=== PATIENT | female | born 2000 | race Hispanic/Latino ===

== ENCOUNTER 2019-02-03 21:22 | Emergency (ER) | payer BC ==
[~2019-02-03] VITALS: Ht 158 cm; Wt 64.0 kg
[~2019-02-03 21:22] MED LIST: ORTHO TRI-CY PO; ZOFRAN ODT4 MG PO
[2019-02-03 22:14] LABS: URINE BILIRUBIN - DIPSTICK NEGATIVE (NEGATIVE); URINE BLOOD DIPSTICK LARGE (NEGATIVE); URINE CLARITY SL CLOUDY; URINE COLOR YELLOW; URINE GLUCOSE - DIPSTICK NEGATIVE (NEGATIVE); URINE KETONE NEGATIVE (NEGATIVE); URINE LEUK ESTERASE TRACE (Negative); URINE NITRITE - DIPSTICK NEGATIVE (Negative); URINE PROTEIN - DIPSTICK 100 mg/dL (NEG-TRACE); URINE SPECIFIC GRAVITY >=1.030; URINE UROBILINOGEN - DIPSTICK 0.2 E.U./dL (0.2)
[2019-02-03 22:15] LABS: URINE EPITHELIAL CELLS FEW EPI/hpf (0-FEW); URINE RBC 50-100 RBC/hpf (0-5); URINE WBC 0-2 WBC/hpf (0-5)
[2019-02-03 23:31] LABS: ACT PARTIAL THROMBO TIME 26.5 SECONDS (20.0-32.5); PROTHROMBIN TIME 10.4 SECONDS (9.0-12.5)
[2019-02-04 00:24] VITALS: BP 120/78
== END 2019-02-04 00:24 | disposition home or self-care (01) | DRG 696 ==
LOC: ED 21:22
PROVIDERS: Emergency Medicine
DX: R31.9 Hematuria, unspecified (principal)

== ENCOUNTER 2021-10-14 23:59 | Emergency (ER) | payer MEDICAID ==
[~2021-10-14] VITALS: Ht 157.5 cm; Wt 89.0 kg
[2021-10-15 00:10] VITALS: BP 122/88
[2021-10-15 00:15] VITALS: BP 128/86
[2021-10-15 00:31] VITALS: BP 124/77
[2021-10-15 00:38] LABS: HEMATOCRIT 39.7 % (37.0-47.0); HEMOGLOBIN 12.9 g/dl (12.0-16.0); IMMATURE GRANULOCYTES 0.1 % (0.0-5.0); MEAN CORPUSCULAR HGB 30.2 pG CALC (26.0-32.0); MEAN CORPUSCULAR HGB CONC 32.5 g/dL CAL (32.0-36.0); NEUT# 3.88 thou/uL (2.00-7.15); RED BLOOD COUNT 4.27 mill/uL (4.20-5.60); RED CELL DISTRI WIDTH 11.6 % (11.5-15.5)
[2021-10-15 00:50] LABS: ALBUMIN 4.2 g/dL (3.2-5.0); ALKALINE PHOSPHATASE 73 u/l (38-126); ANION GAP 11 (6-22 (CALC)); BILIRUBIN, TOTAL 0.3 mg/dL (0.0-1.4); BUN 13 mg/dL (7-17); BUN/CREATININE RATIO 22 (12-20 (CALC)); CARBON DIOXIDE 27 mmol/l (22-30); CHLORIDE 105 mmol/l (95-108); CREATININE 0.6 mg/dL (0.5-1.0); GFR > 60 ML/MIN (>=60 (CALC)); GFR FOR AFR.AMER. > 60 ML/MIN (>=60 (CALC)); POTASSIUM 4.6 mmol/l (3.5-5.1); SODIUM 138 mmol/l (137-146); TOTAL PROTEIN 7.8 g/dL (6.3-8.2)
[2021-10-15 00:53] LABS: SGOT/AST 129 u/l (14-36)
[2021-10-15 00:55] LABS: ACT PARTIAL THROMBO TIME 24.9 SECONDS (20.0-32.5); PROTHROMBIN TIME 10.2 SECONDS (9.0-12.5)
[2021-10-15 00:59] LABS: D-DIMER 0.46 mg/L (0.19-0.60)
[2021-10-15 01:00] VITALS: BP 105/70
[2021-10-15] MEDS ORDERED: DULERA1 AE1 IN (01:12)
[2021-10-15] MEDS ORDERED: VENTOLIN HFA IN (01:12)
[2021-10-15 01:14] VITALS: BP 105/70
== END 2021-10-15 01:21 | disposition home or self-care (01) ==
LOC: ED 23:59
PROVIDERS: Family Medicine
DX: R04.2 Hemoptysis (principal); J45.909 Unspecified asthma, uncomplicated

== ENCOUNTER 2022-09-21 07:56 | Emergency (ER) | payer MEDICAID ==
[2022-09-21] VITALS (10 sets, daily range): BP systolic 92–135; BP diastolic 50–91
[~2022-09-21] VITALS: Ht 157.5 cm; Wt 63.5 kg
[~2022-09-21 07:56] MED LIST changes: +DULERA1 AE1 IN; +VENTOLIN HFA IN
[2022-09-21 08:58] LABS: BASO% 0.5 % (0-3); EOS% 1.9 % (0-8); HEMATOCRIT 40.7 % (37.0-47.0); IMMATURE GRANULOCYTES 0.2 % (0.0-5.0); LYMPH% 49.6 % (15-41); MEAN CORPUSCULAR HGB CONC 31.9 g/dL CAL (32.0-36.0); MONO% 7.7 % (2-13); NEUT# 4.98 thou/uL (2.00-7.15); NEUT% 40.1 % (42-76); RED BLOOD COUNT 4.33 mill/uL (4.20-5.60); RED CELL DISTRI WIDTH 11.9 % (11.5-15.5)
[2022-09-21 09:05] LABS: ALBUMIN 4.5 g/dL (3.2-5.0); ALKALINE PHOSPHATASE 99 u/l (38-126); ANION GAP 14 (6-22 (CALC)); BILIRUBIN, TOTAL 0.5 mg/dL (0.02-1.3); BUN 12 mg/dL (7-17); BUN/CREATININE RATIO 23 (12-20 (CALC)); CARBON DIOXIDE 23 mmol/l (22-30); CHLORIDE 106 mmol/l (95-108); CREATININE 0.5 mg/dL (0.5-1.0); GFR FOR AFR.AMER. > 60 ML/MIN (>=60 (CALC)); GFR OTHER RACES > 60 ML/MIN (>=60 (CALC)); POTASSIUM 4.8 mmol/l (3.5-5.1); SGOT/AST 122 u/l (14-36); SODIUM 138 mmol/l (137-146); TOTAL PROTEIN 8.2 g/dL (6.3-8.2)
[2022-09-21] MEDS ORDERED: AMOXICILLIN500 M2 PO (11:20)
[2022-09-21] MEDS ORDERED: EPIPEN 2-P0.3 MG/0.3 IM (11:20)
[2022-09-21] MEDS ORDERED: PREDNISONE50 MG PO (11:20)
== END 2022-09-21 11:42 | disposition home or self-care (01) ==
LOC: ED 07:56
PROVIDERS: Family Medicine
DX: T78.3XXA Angioneurotic edema, initial encounter (principal); J45.909 Unspecified asthma, uncomplicated; E06.3 Autoimmune thyroiditis; Z20.822 Contact with and (suspected) exposure to COVID-19

== ENCOUNTER 2023-08-11 23:03 | Emergency (ER) | payer MEDICAID ==
[~2023-08-11] VITALS: Ht 157.5 cm; Wt 80.0 kg
[~2023-08-11 23:03] MED LIST changes: +AMOXICILLIN500 M2 PO; +EPIPEN 2-P0.3 MG/0.3 IM; +PREDNISONE50 MG PO
[2023-08-12] MEDS ORDERED: VENTOLIN HFA108 MCG (00:07)
[2023-08-12] MEDS ORDERED: PRENATA3 PO (00:07)
[2023-08-12] MEDS ORDERED: IRON325 M1 (00:07)
[2023-08-12] MEDS ORDERED: [UNRECOGNIZED DRUG - REMARK] (00:08)
[2023-08-12] MEDS ORDERED: SODIUM CHLORIDE 0.9% 1,000 ML IV ONE (00:35)
[2023-08-12] MEDS ORDERED: DEXAMETHASONE SODIUM PHOSPHATE PF 10 MG/ML SDV IV ONE (00:35)
[2023-08-12] MEDS ORDERED: IPRATROPIUM-Albuterol 0.5MG-2.5MG/3 ML NEB ONE (00:40)
[2023-08-12 00:48] LABS: BASO% 0.4 % (0-3); IMMATURE GRANULOCYTES 0.1 % (0.0-5.0); LYMPH% 32.5 % (15-41); MEAN CELL VOLUME 90.6 fL CALC (80.0-100.0); MEAN CORPUSCULAR HGB 28.8 pG CALC (26.0-32.0); MEAN CORPUSCULAR HGB CONC 31.8 g/dL CAL (32.0-36.0); NEUT# 4.44 thou/uL (2.00-7.15); RED BLOOD COUNT 3.4 mill/uL (4.20-5.60); RED CELL DISTRI WIDTH 15.6 % (11.5-15.5)
[2023-08-12 00:58] LABS: HEMATOCRIT 30.8 % (37.0-47.0); HEMOGLOBIN 9.8 g/dl (12.0-16.0)
[2023-08-12 01:00] LABS: ALBUMIN 3.3 g/dL (3.2-5.0); ALKALINE PHOSPHATASE 198 u/l (38-126); ANION GAP 9 (6-22 (CALC)); BILIRUBIN, TOTAL 0.3 mg/dL (0.02-1.3); BUN 13 mg/dL (7-17); BUN/CREATININE RATIO 24 (12-20 (CALC)); CARBON DIOXIDE 22 mmol/l (22-30); CHLORIDE 110 mmol/l (95-108); CREATININE 0.5 mg/dL (0.5-1.0); GFR FOR AFR.AMER. > 60 ML/MIN (>=60 (CALC)); GFR OTHER RACES > 60 ML/MIN (>=60 (CALC)); LIPASE 226 u/l (23-300); POTASSIUM 4.4 mmol/l (3.5-5.1); SGOT/AST 402 u/l (14-36); SODIUM 137 mmol/l (137-146); TOTAL PROTEIN 6.4 g/dL (6.3-8.2)
[2023-08-12 01:06] LABS: PROTHROMBIN TIME 9.5 SECONDS (9.0-12.5)
[2023-08-12 01:22] VITALS: BP 128/80
== END 2023-08-12 01:22 | disposition left against medical advice (07) ==
LOC: ED 23:03
PROVIDERS: Internal Medicine
DX: O90.89 Other complications of the puerperium, not elsewhere classified (principal); R06.02 Shortness of breath; R07.9 Chest pain, unspecified; Z53.29 Procedure and treatment not carried out because of patient's decision for other reasons